=== PATIENT | female | born 1930 | race Caucasian/White ===

== ENCOUNTER 2018-03-19 11:56 | Inpatient (IN) | payer OTHER, MEDICARE ==
[~2018-03-19] VITALS: Ht 152.4 cm; Wt 55.6 kg
[~2018-03-19 11:56] MED LIST: AMOXICILLIN500 M1 PO; ANT12.5 PO; BAY PO; CLARITHROMYCIN500 M1 PO; LAC PO; METP PO; NOR5 PO; PRILOSEC20 MG PO; ZES20 PO
[2018-03-19 12:05] VITALS: Ht 152.4 cm; Wt 55.6 kg
[2018-03-19 12:41] LABS: BASOPHIL % 0.3 % (0-2); PLATELET COUNT 224 x10^3mcL (130-400)
[2018-03-19 12:50] LABS: CALCIUM 8.9 mg/dL (8.5-10.1); CARBON DIOXIDE 25.1 mmol/L (21-32); CHLORIDE SERUM 106 mmol/L (98-107); CREATININE SERUM 1.1 mg/dL (0.6-1.0); GLUCOSE SERUM 146 mg/dL (74-106); POTASSIUM SERUM 3.9 mmol/L (3.5-5.1); SODIUM SERUM 140 mmol/L (136-145)
[2018-03-19 12:54] LABS: ALKALINE PHOSPHATASE 144 U/L (46-116); ALT/SGPT 42 U/L (14-59); AST/SGOT 38 U/L (15-37); BILIRUBIN TOTAL 0.29 mg/dL (0.20-1.00); LIPASE 209 IU/L (73-393); TOTAL PROTEIN, SERUM 7.5 g/dL (6.4-8.2)
[2018-03-19 12:56] LABS: ALBUMIN 3.3 g/dL (3.4-5.0)
[2018-03-19 13:10] LABS: RED CELL DISTRIBUTION WIDTH 14.6 % (11.5-14.5)
[2018-03-19] MEDS ORDERED: LISINOPRIL10 MG PO (16:45)
[2018-03-19] MEDS ORDERED: AMLODIPINE BES2.5 M1 PO (16:46)
[2018-03-19 17:33] LABS: CHOLESTEROL/HDL RATIO 4.9; PHOSPHOROUS 3.2 mg/dL (2.5-4.9)
[2018-03-19 17:41] LABS: FREE T4 1.01 ng/dL (0.76-1.46); FREE THYROXINE INDEX 2.8 ug/dL (1.4-4.5); T4(THYROXINE) 9.2 ug/dL (4.7-13.3)
[2018-03-19 17:43] LABS: T3 TOTAL 0.97 ng/mL
[2018-03-19 17:53] LABS: UA SPECIFIC GRAVITY 1.025 (1.005-1.035); microscopic required? YES; urine erythrocyte NEGATIVE (NEGATIVE)
[2018-03-19 18:03] VITALS: BP 148/65
[2018-03-19 18:45] VITALS: BP 119/54
[2018-03-19 20:53] VITALS: BP 101/64
[2018-03-20 05:59] VITALS: BP 108/45
[2018-03-20 06:32] LABS: BASOPHIL % 0.5 % (0-2); PLATELET COUNT 192 x10^3mcL (130-400)
[2018-03-20 06:39] LABS: CALCIUM 8.7 mg/dL (8.5-10.1); CARBON DIOXIDE 24.6 mmol/L (21-32); CHLORIDE SERUM 107 mmol/L (98-107); CREATININE SERUM 0.8 mg/dL (0.6-1.0); GLUCOSE SERUM 111 mg/dL (74-106); POTASSIUM SERUM 4.2 mmol/L (3.5-5.1); SODIUM SERUM 138 mmol/L (136-145)
[2018-03-20 08:03] VITALS: BP 147/56
[2018-03-20 16:08] VITALS: BP 150/59
[2018-03-20 21:05] VITALS: BP 119/63
[2018-03-21] VITALS (8 sets, daily range): BP systolic 125–158; BP diastolic 45–62
[2018-03-21 06:54] LABS: BASOPHIL % 0.5 % (0-2); PLATELET COUNT 192 x10^3mcL (130-400)
[2018-03-21 07:00] LABS: CALCIUM 9.2 mg/dL (8.5-10.1); CARBON DIOXIDE 24.7 mmol/L (21-32); CHLORIDE SERUM 106 mmol/L (98-107); CREATININE SERUM 0.8 mg/dL (0.6-1.0); GLUCOSE SERUM 97 mg/dL (74-106); POTASSIUM SERUM 3.9 mmol/L (3.5-5.1); SODIUM SERUM 139 mmol/L (136-145)
[2018-03-21 07:09] LABS: RED CELL DISTRIBUTION WIDTH 14.6 % (11.5-14.5)
[2018-03-21 07:33] LABS: ALPHA FETOPROTEIN TUMOR MARKER 234.4 ng/mL (0.0-8.3)
[2018-03-22 05:27] VITALS: BP 133/47
[2018-03-22 06:15] LABS: BASOPHIL % 0.5 % (0-2); PLATELET COUNT 198 x10^3mcL (130-400)
[2018-03-22 06:35] LABS: CALCIUM 9.5 mg/dL (8.5-10.1); CARBON DIOXIDE 25.1 mmol/L (21-32); CHLORIDE SERUM 105 mmol/L (98-107); CREATININE SERUM 0.9 mg/dL (0.6-1.0); GLUCOSE SERUM 103 mg/dL (74-106); POTASSIUM SERUM 4.3 mmol/L (3.5-5.1); SODIUM SERUM 141 mmol/L (136-145)
[2018-03-22 07:07] LABS: RED CELL DISTRIBUTION WIDTH 14.6 % (11.5-14.5)
[2018-03-22 08:27] VITALS: BP 154/58
[2018-03-22 16:56] VITALS: BP 112/48
[2018-03-22 20:45] VITALS: BP 135/53
[2018-03-23 05:27] VITALS: BP 143/60
[2018-03-23 08:10] VITALS: BP 118/72
[2018-03-23 17:32] VITALS: BP 143/63
[2018-03-23 21:06] VITALS: BP 142/53
[2018-03-24 05:01] VITALS: BP 152/53
[2018-03-24 06:54] LABS: BASOPHIL % 0.3 % (0-2); PLATELET COUNT 223 x10^3mcL (130-400); RED CELL DISTRIBUTION WIDTH 14.9 % (11.5-14.5)
[2018-03-24 07:06] LABS: CALCIUM 8.9 mg/dL (8.5-10.1); CARBON DIOXIDE 25.1 mmol/L (21-32); CHLORIDE SERUM 106 mmol/L (98-107); CREATININE SERUM 0.8 mg/dL (0.6-1.0); GLUCOSE SERUM 93 mg/dL (74-106); POTASSIUM SERUM 3.9 mmol/L (3.5-5.1); SODIUM SERUM 139 mmol/L (136-145)
[2018-03-24 08:38] VITALS: BP 126/53
[2018-03-24 17:26] VITALS: BP 128/66
[2018-03-24 20:15] VITALS: BP 131/68
[2018-03-25 05:09] VITALS: BP 114/51
[2018-03-25 08:20] VITALS: BP 106/49
[2018-03-25] MEDS ORDERED: NOR5 PO (16:16)
[2018-03-25] MEDS ORDERED: ZES10 PO (16:17)
[2018-03-25] MEDS ORDERED: ACETAMINOPHEN-H1 TA1 PO (16:18)
[2018-03-25] MEDS ORDERED: LAC PO (16:20)
[2018-03-25] MEDS ORDERED: MEGESTROL AC40 MG/ML PO (16:21)
[2018-03-25] MEDS ORDERED: TRAMADOL HCL50 MG PO (16:22)
[2018-03-25 16:29] VITALS: BP 145/51
[2018-03-26 07:54] LABS: RAPID PLASMA REAGIN Non Reactive (Non Reactive)
== END 2018-03-25 17:48 | disposition home health service (06) | DRG 281 ==
LOC: ED 11:56 → MU 16:06
PROVIDERS: Emergency Medicine; Family Medicine
PROC: 0FB13ZX Excision of Right Lobe Liver, Percutaneous Approach, Diagnostic (ICD-10-PCS; principal; 2018-03-21)
DX: C22.0 Liver cell carcinoma (principal); N17.0 Acute kidney failure with tubular necrosis; K55.1 Chronic vascular disorders of intestine; K86.1 Other chronic pancreatitis; I77.4 Celiac artery compression syndrome; R18.8 Other ascites; E44.1 Mild protein-calorie malnutrition; J84.10 Pulmonary fibrosis, unspecified; I11.9 Hypertensive heart disease without heart failure; N39.0 Urinary tract infection, site not specified; G31.84 Mild cognitive impairment of uncertain or unknown etiology; K57.90 Diverticulosis of intestine, part unspecified, without perforation or abscess without bleeding; R62.7 Adult failure to thrive; R80.9 Proteinuria, unspecified; R73.03 Prediabetes; Z68.23 Body mass index [BMI] 23.0-23.9, adult; Z79.899 Other long term (current) drug therapy; I70.0 Atherosclerosis of aorta; K74.60 Unspecified cirrhosis of liver; M51.36 Other intervertebral disc degeneration, lumbar region
CPT/HCPCS: 83880; 84439; 88344; 97116-GP; 97530-GP; C1894; J0696; J1885; J2001; J2270; J2405; J3490; J7040; J7050; Q0092; Q0162; Q9967

== ENCOUNTER 2018-05-23 08:25 | Inpatient (IN) | payer OTHER, MEDICARE ==
[~2018-05-23] VITALS: Ht 152.4 cm; Wt 52.6 kg
[~2018-05-23 08:25] MED LIST changes: +ACETAMINOPHEN-H1 TA1 PO; +AMLODIPINE BES2.5 M1 PO; +LISINOPRIL10 MG PO; +MEGESTROL AC40 MG/ML PO; +TRAMADOL HCL50 MG PO; +ZES10 PO
[2018-05-23 08:34] VITALS: Ht 152.4 cm; Wt 52.6 kg
[2018-05-23 09:17] LABS: BASOPHIL % 0.7 % (0-2); PLATELET COUNT 290 x10^3mcL (130-400)
[2018-05-23 09:22] LABS: RED CELL DISTRIBUTION WIDTH 14.9 % (11.5-14.5)
[2018-05-23 09:39] LABS: CALCIUM 9.5 mg/dL (8.5-10.1); CARBON DIOXIDE 24.6 mmol/L (21-32); CHLORIDE SERUM 95 mmol/L (98-107); CREATININE SERUM 0.9 mg/dL (0.6-1.0); GLUCOSE SERUM 107 mg/dL (74-106); POTASSIUM SERUM 4.4 mmol/L (3.5-5.1); SODIUM SERUM 129 mmol/L (136-145)
[2018-05-23 09:48] LABS: ALKALINE PHOSPHATASE 160 U/L (46-116); ALT/SGPT 79 U/L (14-59); AMYLASE 42 U/L (25-115); AST/SGOT 114 U/L (15-37); BILIRUBIN TOTAL 0.4 mg/dL (0.20-1.00); CHOLESTEROL 184 mg/dL (<200); LIPASE 125 IU/L (73-393); MAGNESIUM 2.3 mg/dL (1.8-2.4); T4(THYROXINE) 10.7 ug/dL (4.7-13.3); TOTAL PROTEIN, SERUM 7.8 g/dL (6.4-8.2)
[2018-05-23 09:52] LABS: ALBUMIN 2.8 g/dL (3.4-5.0); HDL CHOLESTEROL 33 mg/dL (40-60)
[2018-05-23 10:33] LABS: microscopic required? NO
[2018-05-23 11:17] LABS: UA SPECIFIC GRAVITY <=1.005 (1.005-1.035); urine erythrocyte NEGATIVE (NEGATIVE)
[2018-05-23 11:24] LABS: AMPHETAMINE QUAL UR NONE DETECTED (See below)
[2018-05-23 12:44] VITALS: BP 131/74
[2018-05-23 17:41] VITALS: BP 144/62
[2018-05-23 20:29] VITALS: BP 114/57
[2018-05-23 20:32] VITALS: BP 126/62
[2018-05-24 05:30] VITALS: BP 136/61
[2018-05-24 06:52] LABS: CALCIUM 8.8 mg/dL (8.5-10.1); CARBON DIOXIDE 20.8 mmol/L (21-32); CHLORIDE SERUM 104 mmol/L (98-107); CREATININE SERUM 0.8 mg/dL (0.6-1.0); GLUCOSE SERUM 103 mg/dL (74-106); MAGNESIUM 2.1 mg/dL (1.8-2.4); PHOSPHOROUS 2.5 mg/dL (2.5-4.9); POTASSIUM SERUM 3.9 mmol/L (3.5-5.1); SODIUM SERUM 136 mmol/L (136-145)
[2018-05-24 08:34] LABS: ALPHA FETOPROTEIN TUMOR MARKER 176.5 ng/mL (0.0-8.3)
[2018-05-24 08:55] LABS: BILIRUBIN DIRECT 0.16 mg/dL (0.0-0.2); BILIRUBIN TOTAL 0.44 mg/dL (0.20-1.00); TOTAL PROTEIN, SERUM 7.5 g/dL (6.4-8.2)
[2018-05-24 08:56] LABS: ALBUMIN 2.8 g/dL (3.4-5.0)
[2018-05-24 09:04] VITALS: BP 173/80
[2018-05-24 09:30] LABS: BASOPHIL % 0.3 % (0-2); PLATELET COUNT 283 x10^3mcL (130-400); RED CELL DISTRIBUTION WIDTH 14.4 % (11.5-14.5)
[2018-05-24 12:37] VITALS: BP 128/63
[2018-05-24 15:46] VITALS: BP 151/62
[2018-05-24 20:52] VITALS: BP 101/60
[2018-05-25 04:54] VITALS: BP 142/67
[2018-05-25 07:04] LABS: ALKALINE PHOSPHATASE 142 U/L (46-116); ALT/SGPT 75 U/L (14-59); AST/SGOT 111 U/L (15-37); BILIRUBIN DIRECT 0.19 mg/dL (0.0-0.2); BILIRUBIN TOTAL 0.6 mg/dL (0.20-1.00); CALCIUM 9.2 mg/dL (8.5-10.1); CARBON DIOXIDE 19.6 mmol/L (21-32); CHLORIDE SERUM 99 mmol/L (98-107); CREATININE SERUM 1.3 mg/dL (0.6-1.0); GLUCOSE SERUM 111 mg/dL (74-106); PHOSPHOROUS 3.6 mg/dL (2.5-4.9); POTASSIUM SERUM 3.9 mmol/L (3.5-5.1); SODIUM SERUM 132 mmol/L (136-145); TOTAL PROTEIN, SERUM 7.5 g/dL (6.4-8.2)
[2018-05-25 07:06] LABS: ALBUMIN 2.8 g/dL (3.4-5.0)
[2018-05-25 07:40] LABS: BASOPHIL % 0.2 % (0-2); PLATELET COUNT 274 x10^3mcL (130-400); RED CELL DISTRIBUTION WIDTH 14.1 % (11.5-14.5)
[2018-05-25 09:00] VITALS: BP 108/42
[2018-05-25 11:32] VITALS: BP 130/50
[2018-05-25 16:30] VITALS: BP 136/59
[2018-05-25 21:04] VITALS: BP 114/54
[2018-05-26 05:50] VITALS: BP 139/56
[2018-05-26 07:08] VITALS: BP 140/71
[2018-05-26 07:24] LABS: BASOPHIL % 0.4 % (0-2); PLATELET COUNT 262 x10^3mcL (130-400); RED CELL DISTRIBUTION WIDTH 14.4 % (11.5-14.5)
[2018-05-26 07:43] LABS: CALCIUM 8.8 mg/dL (8.5-10.1); CARBON DIOXIDE 19.6 mmol/L (21-32); CHLORIDE SERUM 104 mmol/L (98-107); GLUCOSE SERUM 94 mg/dL (74-106); POTASSIUM SERUM 3.6 mmol/L (3.5-5.1); SODIUM SERUM 135 mmol/L (136-145)
[2018-05-26 10:55] VITALS: BP 146/50
[2018-05-26 17:02] VITALS: BP 154/62
[2018-05-26 19:35] VITALS: BP 146/62
[2018-05-27] VITALS (7 sets, daily range): BP systolic 115–175; BP diastolic 41–77
[2018-05-27] MEDS ORDERED: ECO81 PO (13:26)
[2018-05-27] MEDS ORDERED: METOPROLOL TART25 M1 PO (13:28)
[2018-05-27] MEDS ORDERED: LIPI10 PO (13:28)
== END 2018-05-27 18:16 | DRG 190 ==
LOC: ED 08:25 → DU 11:10
PROVIDERS: Emergency Medicine; Internal Medicine
DX: I21.4 Non-ST elevation (NSTEMI) myocardial infarction (principal); N17.0 Acute kidney failure with tubular necrosis; C22.0 Liver cell carcinoma; E11.65 Type 2 diabetes mellitus with hyperglycemia; E44.0 Moderate protein-calorie malnutrition; E87.1 Hypo-osmolality and hyponatremia; Z66 Do not resuscitate; I10 Essential (primary) hypertension; E78.5 Hyperlipidemia, unspecified; Z68.22 Body mass index [BMI] 22.0-22.9, adult; Z79.899 Other long term (current) drug therapy; G89.3 Neoplasm related pain (acute) (chronic); R62.7 Adult failure to thrive; I25.10 Atherosclerotic heart disease of native coronary artery without angina pectoris
CPT/HCPCS: 36600; 82962; 97110-GP; 97116-GP; G0480; J1650; J3411; J3475; J3490; J7030; Q0092; Q0163; Q9967

== ENCOUNTER 2018-06-25 06:56 | Emergency (ER) | payer MEDICARE, OTHER ==
[~2018-06-25] VITALS: Ht 152.4 cm; Wt 49.0 kg
[~2018-06-25 06:56] MED LIST changes: +ECO81 PO; +LIPI10 PO; +METOPROLOL TART25 M1 PO
[2018-06-25 07:28] LABS: BASOPHIL % 0.7 % (0-2); PLATELET COUNT 314 x10^3mcL (130-400)
[2018-06-25 07:32] LABS: RED CELL DISTRIBUTION WIDTH 14.8 % (11.5-14.5)
[2018-06-25 07:36] LABS: CALCIUM 9.7 mg/dL (8.5-10.1); CARBON DIOXIDE 21.1 mmol/L (21-32); CHLORIDE SERUM 101 mmol/L (98-107); CREATININE SERUM 1.2 mg/dL (0.6-1.0); GLUCOSE SERUM 147 mg/dL (74-106); POTASSIUM SERUM 4.1 mmol/L (3.5-5.1); SODIUM SERUM 134 mmol/L (136-145)
[2018-06-25 07:40] LABS: ALKALINE PHOSPHATASE 167 U/L (46-116); ALT/SGPT 47 U/L (14-59); AST/SGOT 90 U/L (15-37); BILIRUBIN TOTAL 0.5 mg/dL (0.20-1.00); TOTAL PROTEIN, SERUM 7.7 g/dL (6.4-8.2)
[2018-06-25 07:41] LABS: ALBUMIN 3.1 g/dL (3.4-5.0)
[2018-06-25 09:05] VITALS: BP 125/91
== END 2018-06-25 09:05 | disposition home or self-care (01) ==
LOC: ED 06:56
PROVIDERS: Emergency Medicine
DX: R04.0 Epistaxis (principal); I10 Essential (primary) hypertension
CPT/HCPCS: Q0162

== ENCOUNTER 2018-07-05 14:41 | Inpatient (IN) | payer OTHER, MEDICARE ==
[~2018-07-05] VITALS: Ht 152.4 cm; Wt 48.8 kg
--- NOTE | 2018-07-05 16:22 | NUR ---
TO ROOM 11 FOR EVAL.
--- NOTE | 2018-07-05 16:35 | NUR ---
PT BIB FAMILY C/C COUGH STS CP FROM COUGH X [address] PATSY WEAVER
--- NOTE | 2018-07-05 16:51 | NUR ---
PLEASE ENTER FULL NAMES OF TALENT DIRECTOR/RN Patient data collected by (TALENT DIRECTOR):[email or web address] Assessment reviewed and completed by (RN): Biran AGUSTIN
--- NOTE | 2018-07-05 17:22 | NUR ---
DR JACINTO AT BEDSIDE TO TO EVAL
--- NOTE | 2018-07-05 17:32 | NUR ---
XRAY AT BEDSIDE
[2018-07-05 18:07] LABS: BASOPHIL % 0.6 % (0-2); PLATELET COUNT 237 x10^3mcL (130-400)
[2018-07-05 18:22] LABS: RED CELL DISTRIBUTION WIDTH 15.5 % (11.5-14.5)
[2018-07-05 18:26] LABS: CARBON DIOXIDE 19.9 mmol/L (21-32); CHLORIDE SERUM 99 mmol/L (98-107); CREATININE SERUM 0.9 mg/dL (0.6-1.0); GLUCOSE SERUM 101 mg/dL (74-106); POTASSIUM SERUM 3.9 mmol/L (3.5-5.1); SODIUM SERUM 131 mmol/L (136-145)
[2018-07-05 18:39] LABS: ALKALINE PHOSPHATASE 160 U/L (46-116); ALT/SGPT 78 U/L (14-59); AST/SGOT 190 U/L (15-37); BILIRUBIN TOTAL 0.3 mg/dL (0.20-1.00); FREE T4 1.03 ng/dL (0.76-1.46); TOTAL PROTEIN, SERUM 7.5 g/dL (6.4-8.2)
[2018-07-05 18:40] LABS: ALBUMIN 2.9 g/dL (3.4-5.0)
--- NOTE | 2018-07-05 18:52 | NUR ---
BACK FROM BATHROOM MEDICATED ORDERED
--- NOTE | 2018-07-05 19:09 | NUR ---
RECEIVED PT REPORT FROM IWONA COMER TO RESUME PRIMARY CARE
--- NOTE | 2018-07-05 19:31 | NUR ---
PT LAYING IN ED GURNEY IN POSITION OF COMFORT. PT HAS DAUGHTER AT BEDSIDE. PT HAS COMFORT MEASURES IN PLACE. PT IS A/O X3. PT IS ABLE TO FOLLOW COMMANDS APPROPRIATELY. PT RESPS ARE E/U. PT DENIES ANY PAIN. PTS SKIN IS WARM AND DRY TO TOUCH. NO DISTRESS NOTED
--- NOTE | 2018-07-05 19:44 | NUR ---
DR JACINTO AT BEDSIDE DISCUSSING PLAN OF CARE WITH PT AND FAMILY
[2018-07-05 20:33] LABS: PHOSPHOROUS 3.3 mg/dL (2.5-4.9)
--- NOTE | 2018-07-05 20:38 | NUR ---
GAVE PT REPORT TO GIGI WEATHERS FOR PT TO BE ADMITTED TO TELE FLOOR.
--- NOTE | 2018-07-05 20:42 | NUR ---
PT WHEELED OUT OF ED VIA ED GURNEY. PT ADMITTED TO TELE FLOOR. NO INCIDENCE NOTED
[2018-07-05 20:43] LABS: CHOLESTEROL/HDL RATIO 5.8
--- NOTE | 2018-07-05 20:45 | NUR ---
RECEIVED PT FROM ED [facility]IA [facility], CAME IN DUE TO SOB AND CHEST PAIN WHEN COUGHING. AAOX1, ABLE TO FOLLOW SIMPLE COMMANDS. NO SOB NOTED, O2 SAT=97%, ON RA. LUNG SOUNDS CTA. PER PT'S DAUGHTER, PT HAS PRODUDCTIVE COUGH, ABLE TO EXPECTORATE GREEN PHLEGM. DENIES CHEST PAIN/PRESSURE, SR ON THE MONITOR. DENIES ABDOMINAL PAIN/NAUSEA/VOMITING. PER PT'S DAUGHTER, PT HAS DIARRHEAL EPISODES X2 DAYS, HAD 1 EPISODE TODAY. VOIDS. SKIN IS INTACT. SIDE RAILS UPX2. CALL LIGHT ON REACH. BED ALARM ON. HOB ELEVATED AT 30 DEG. DAUGHTER AT BEDSIDE. ENDORSED TO PRIMARY NURSE WILFRID FOR CONTINUITY OF CARE
[2018-07-05 21:17] VITALS: BP 144/66
[2018-07-05 21:21] VITALS: Ht 152.4 cm; Wt 48.8 kg
[2018-07-05 23:36] VITALS: BP 144/66
--- NOTE | 2018-07-06 04:54 | NUR ---
PT SLEPT WELL WITH DAUGHTER AT BEDSIDE.OCCASSIONAL COUGHING AND COUGHS OUT GREENISH PHLEGM.ASSISTED TO BR BY DAUGHTER AND WELL TOLERATED.DENIES CHESTPAIN AT THIS TIME.ALL NEEDS MET.WILL CONTINUE TO MONITOR.
[2018-07-06 06:01] LABS: UA SPECIFIC GRAVITY 1.025 (1.005-1.035); microscopic required? YES; urine erythrocyte NEGATIVE (NEGATIVE)
[2018-07-06 06:12] VITALS: BP 135/60
[2018-07-06 06:19] LABS: CALCIUM 8.7 mg/dL (8.5-10.1); CARBON DIOXIDE 21.3 mmol/L (21-32); CHLORIDE SERUM 93 mmol/L (98-107); CREATININE SERUM 0.8 mg/dL (0.6-1.0); GLUCOSE SERUM 105 mg/dL (74-106); MAGNESIUM 1.8 mg/dL (1.8-2.4); POTASSIUM SERUM 3.8 mmol/L (3.5-5.1); SODIUM SERUM 125 mmol/L (136-145)
[2018-07-06 06:40] LABS: BASOPHIL % 0.4 % (0-2); PLATELET COUNT 206 x10^3mcL (130-400)
[2018-07-06 07:05] LABS: RED CELL DISTRIBUTION WIDTH 15.3 % (11.5-14.5)
--- NOTE | 2018-07-06 07:15 | NUR ---
RECEIVED PATIENT FROM SOCIAL MEDIA ASSISTANT NURSE. PATIENT IS AWAKE ALERT AND CONFUSED. TELE#9, SB, HR 59, DENIES FEELINGS OF DIZZINESS AND LIGHTHEADEDNESS. PATIENT IS ON ROOM AIR, REATHING EVEN AND UNLABORED. PRODUCTIVE COUGH NOTED WITH GREEN SPUTUM PER SOCIAL MEDIA ASSISTANT NURSE. IV NOTED TO LFA, IVF INFUSING WELL ORDERED, NO S/S REDNESS OR EDEMA AT SITE. CALL LIGHT WITHIN EASY REACH. FALL AND SAFETY PRECAUTIONS IN PLACE. WILL CONTINUE PLAN OF CARE.
[2018-07-06 08:03] VITALS: BP 143/60
--- NOTE | 2018-07-06 12:12 | NUR ---
PATIENT A1C 6.3. DR VASQUES NOTIFIED.
[2018-07-06 13:00] VITALS: BP 149/70
--- NOTE | 2018-07-06 14:04 | NUR ---
PATIENT RESTING PEACEFULLY WITH BOTH EYES CLOSED. BREATHING EVEN AND UNLABORED ON ROOM AIR. IVF INFUSING WELL TO RIGHT WRIST, NO S/S REDNESS OR EDEMA AT SITE. CALL LIGHT WITHIN EASY REACH. FALL ANS SAFETY PRECAUTIONS IN PLACE. WILL CONTINUE TO MONITOR.
[2018-07-06 17:24] VITALS: BP 100/56
--- NOTE | 2018-07-06 18:53 | NUR ---
PATIENT RESTING IN BED PEACEFULLY WITH FAMILY AT THE BEDSIDE. DENIES PAIN AND DISCOMOFRT AT THIS TIME. VS STABLE. PATIENT CARE ENDORSED TO MEDICAID ELIGIBILITY SPECIALIST NURSE.
[2018-07-06 19:05] VITALS: BP 116/63
--- NOTE | 2018-07-06 19:05 | NUR ---
RECIEVED PT SITTING ON A CHAIR AT THIS TIME.BREATHING EASY AND NON-LABORED WITH OCCASSIONAL COUGHING.DAUGHTER AT BEDSIDE REPORTS OF WHITISH PHLEGM.DENIES CHESTPAIN.BP 116/63 MMHG,HR 74.WILL CONTINUE TO MONITOR.
--- NOTE | 2018-07-06 19:30 | NUR ---
CHECKED ON PT AFTER DAUGHTER LEFT AND ATTEMPTED TO WALK TOWARDS THE BR.APPEARS VERY CONFUSED AND DISORIENTED,HAVE FRENCH SPEAKING NURSE TALKED TO PT BUT UNABLE TO REDURECT BEHAVIOR.WANTS US TO LEAVE THE ROOM AND ATTEMPTING TO CLOSE THE DOOR.CALLED ON THE PHONE AND INFORMED OF THE SITUATION.WILL COME BACK FOR THE PT.WILL ALLOW PT TO CALM DOWN.SIITING AT THE CHAIR AT THIS TIME.WILL STAY WITH PT UNTIL DAUGHTER COMES BACK
--- NOTE | 2018-07-07 04:34 | NUR ---
PT SLEPT WELL WITH DAUGHTER AT BEDSIDE.NOTED WITH ON AND OFF COUGHING AND ABLE TO EXPECTORATE WHITISH THICK COLORED PHLEGM.NO CONGESTION NOTED.ON RT PROTOCOL.DENIES CHESTPAIN ALL NIGHT.ALL NEEDS MET.WILL CONTINUE TO MONITOR.
[2018-07-07 06:28] VITALS: BP 141/64
[2018-07-07 06:30] LABS: BASOPHIL % 0.5 % (0-2); PLATELET COUNT 233 x10^3mcL (130-400)
[2018-07-07 07:07] LABS: RED CELL DISTRIBUTION WIDTH 14.8 % (11.5-14.5)
[2018-07-07 07:29] LABS: CALCIUM 8.8 mg/dL (8.5-10.1); CARBON DIOXIDE 20.8 mmol/L (21-32); CHLORIDE SERUM 98 mmol/L (98-107); CREATININE SERUM 0.7 mg/dL (0.6-1.0); GLUCOSE SERUM 106 mg/dL (74-106); MAGNESIUM 1.9 mg/dL (1.8-2.4); PHOSPHOROUS 2.7 mg/dL (2.5-4.9); POTASSIUM SERUM 3.9 mmol/L (3.5-5.1); SODIUM SERUM 131 mmol/L (136-145)
--- NOTE | 2018-07-07 07:40 | NUR ---
RECIEVED PT. RESTLESS AND AGITATED,AFTER HER DAUGHTER WENT HOME,PT. UNCOOPERATIVE,PULLING HER IV ACCESS,CAN NOT KEEP TO SIT DOWN IN CHAIR AT BEDSIDE FOR BREAKFAST NOTED PT. HAS FEAR,ANXIETY W/ OUT HER DAUGHTER PRESENCE AT BEDSIDE.APPEARS CONFUSED ,UNABLE TO SAY HER NAME.MAKE PT. RELAX AND TO CALM HER DOWN BUT STILL RESTLESS. CALLED HER DAUGHTER AT HOME AND NOTIFIED REGARDING HER MOTHER CONDITION.AND NOTIFIED TO CHARGE NURSE NELLY AND MD NOTIFIED THEY ARE MADE AWARE.PUT PT. IN CHAIR AND CONT. TO MONITOR .
--- NOTE | 2018-07-07 08:30 | NUR ---
PT. DAUGHTER AND HER SON ARRIVED AND PT. FOLLOWED INSTRUCTIONS TO GO BACK IN HER BED.AND HER DAUGHTER TALKING TO PT. PT. RESTING IN BED AT THIS TIME.
--- NOTE | 2018-07-07 10:00 | NUR ---
PT. ASSISTED TO AMBULATE IN THE BATHROOM AND VOIDING. PUT IN CHAIR AT BEDSIDE WITH HER SON AT BEDSIDE TOO AND MORE COOPERATIVE AT THIS TIME.CALL LIGHT W/ IN REACH. CONT IV ANTIBIOTIC ORDERED.DENIES ANY PAIN.
[2018-07-07 10:12] VITALS: BP 107/52
[2018-07-07 11:19] VITALS: BP 107/52
[2018-07-07] MEDS ORDERED: ZITHROMAX500 MG PO (11:19)
--- NOTE | 2018-07-07 15:17 | NUR ---
PT. WENT HOME W/ STABLE CONDTION PER W/C ACC. W/ HER DAUGHTER,DISCHARGED INSTRUCTIONS AND PRESCRIPTION GIVEN AND DISCUSSED TO PT/DAUGHTER AND VERBALIZED UNDERSTANDING OF INSTRUCTIONS GIVEN NO ACUTE DISTRESS NOTED ESCORTED BY SCHOOL BUS INSPECTOR IN THE LOBBY.
== END 2018-07-07 14:56 | disposition home or self-care (01) | DRG 137 ==
LOC: ED 14:41 → DU 19:48
PROVIDERS: Emergency Medicine; ADMIT Internal Medicine
DX: J69.0 Pneumonitis due to inhalation of food and vomit (principal); J96.00 Acute respiratory failure, unspecified whether with hypoxia or hypercapnia; E43 Unspecified severe protein-calorie malnutrition; D89.9 Disorder involving the immune mechanism, unspecified; E11.65 Type 2 diabetes mellitus with hyperglycemia; Z99.81 Dependence on supplemental oxygen; C22.0 Liver cell carcinoma; E87.1 Hypo-osmolality and hyponatremia; I10 Essential (primary) hypertension; I25.2 Old myocardial infarction; Z66 Do not resuscitate; R74.0 Nonspecific elevation of levels of transaminase and lactic acid dehydrogenase [LDH]; J20.9 Acute bronchitis, unspecified; Z79.82 Long term (current) use of aspirin; Z79.899 Other long term (current) drug therapy; Z68.21 Body mass index [BMI] 21.0-21.9, adult
CPT/HCPCS: 82962; 83880; 84439; 87804; J0456; J0696; J7030; Q0092

== ENCOUNTER 2018-07-15 11:11 | Inpatient (IN) | payer OTHER, MEDICARE ==
[~2018-07-15] VITALS: Ht 152.4 cm; Wt 47.8 kg
[2018-07-15 11:50] LABS: BASOPHIL % 0.5 % (0-2); PLATELET COUNT 284 x10^3mcL (130-400)
[2018-07-15 11:53] LABS: RED CELL DISTRIBUTION WIDTH 15.8 % (11.5-14.5)
[2018-07-15 11:59] LABS: CALCIUM 9.1 mg/dL (8.5-10.1); CHLORIDE SERUM 100 mmol/L (98-107); CREATININE SERUM 0.8 mg/dL (0.6-1.0); GLUCOSE SERUM 99 mg/dL (74-106); POTASSIUM SERUM 4.2 mmol/L (3.5-5.1); SODIUM SERUM 133 mmol/L (136-145)
[2018-07-15 12:03] LABS: ALKALINE PHOSPHATASE 163 U/L (46-116); ALT/SGPT 59 U/L (14-59); AST/SGOT 124 U/L (15-37); BILIRUBIN TOTAL 0.62 mg/dL (0.20-1.00); TOTAL PROTEIN, SERUM 7.3 g/dL (6.4-8.2)
[2018-07-15 12:26] LABS: ALBUMIN 2.9 g/dL (3.4-5.0)
[2018-07-15 14:30] VITALS: BP 149/74
[2018-07-15 14:34] LABS: MAGNESIUM 2.2 mg/dL (1.8-2.4); PHOSPHOROUS 3.2 mg/dL (2.5-4.9)
[2018-07-15 14:43] LABS: T3 TOTAL 1.07 ng/mL
[2018-07-15 14:49] LABS: FREE T4 1.37 ng/dL (0.76-1.46); FREE THYROXINE INDEX 3.8 ug/dL (1.4-4.5)
[2018-07-15 14:54] VITALS: Ht 152.4 cm; Wt 47.8 kg
[2018-07-15 17:09] VITALS: BP 145/70
[2018-07-15 20:36] VITALS: BP 145/70
[2018-07-15 21:27] VITALS: BP 119/48
[2018-07-16 04:49] VITALS: BP 126/59
[2018-07-16 08:14] LABS: CHLORIDE SERUM 104 mmol/L (98-107); CREATININE SERUM 0.8 mg/dL (0.6-1.0); GLUCOSE SERUM 116 mg/dL (74-106); POTASSIUM SERUM 3.6 mmol/L (3.5-5.1); SODIUM SERUM 134 mmol/L (136-145)
[2018-07-16 08:26] LABS: BASOPHIL % 0.7 % (0-2); PLATELET COUNT 249 x10^3mcL (130-400)
[2018-07-16 08:29] LABS: RED CELL DISTRIBUTION WIDTH 15.4 % (11.5-14.5)
[2018-07-16 10:10] VITALS: BP 118/54
[2018-07-16 13:14] VITALS: BP 139/62
[2018-07-16 18:52] VITALS: BP 140/66
[2018-07-16 21:21] VITALS: BP 126/55
[2018-07-17 04:27] LABS: CALCIUM 8.4 mg/dL (8.5-10.1); CARBON DIOXIDE 21.8 mmol/L (21-32); CHLORIDE SERUM 104 mmol/L (98-107); CREATININE SERUM 0.7 mg/dL (0.6-1.0); GLUCOSE SERUM 91 mg/dL (74-106); PHOSPHOROUS 2.5 mg/dL (2.5-4.9); POTASSIUM SERUM 3.5 mmol/L (3.5-5.1); SODIUM SERUM 135 mmol/L (136-145)
[2018-07-17 04:32] LABS: BASOPHIL % 0.6 % (0-2); PLATELET COUNT 267 x10^3mcL (130-400); RED CELL DISTRIBUTION WIDTH 15.9 % (11.5-14.5)
[2018-07-17 05:46] VITALS: BP 146/61
[2018-07-17 09:50] VITALS: BP 124/55
[2018-07-17 14:15] VITALS: BP 107/50
[2018-07-17] MEDS ORDERED: ELIQUIS2.5 MG PO (16:39)
[2018-07-17 17:22] VITALS: BP 107/50
[2018-07-17 17:29] VITALS: BP 136/61
== END 2018-07-17 19:56 | disposition home or self-care (01) | DRG 134 ==
LOC: ED 11:11 → DU 12:58
PROVIDERS: Emergency Medicine; Internal Medicine; ADMIT Family Medicine
DX: I26.99 Other pulmonary embolism without acute cor pulmonale (principal); E44.0 Moderate protein-calorie malnutrition; D68.59 Other primary thrombophilia; C22.0 Liver cell carcinoma; E87.1 Hypo-osmolality and hyponatremia; J44.9 Chronic obstructive pulmonary disease, unspecified; E11.9 Type 2 diabetes mellitus without complications; E78.5 Hyperlipidemia, unspecified; K57.30 Diverticulosis of large intestine without perforation or abscess without bleeding; I10 Essential (primary) hypertension; I25.2 Old myocardial infarction; D63.8 Anemia in other chronic diseases classified elsewhere; Z68.21 Body mass index [BMI] 21.0-21.9, adult
CPT/HCPCS: 36600; 84439; 94150; J1644; J7030; Q0092

== ENCOUNTER → 2018-07-15 | Outpatient (CLI) | payer MEDICARE, OTHER ==
[~2018-07-15] MED LIST changes: +ZITHROMAX500 MG PO
== END | disposition home or self-care (01) ==
LOC: CT 08:42
PROC: BW251ZZ Computerized Tomography (CT Scan) of Chest, Abdomen and Pelvis using Low Osmolar Contrast (ICD-10-PCS; principal; 2018-07-15)
DX: C22.0 Liver cell carcinoma (principal)
CPT/HCPCS: Q9967

== ENCOUNTER → 2018-08-28 | Outpatient (CLI) | payer MEDICARE, OTHER ==
[~2018-08-28] MED LIST changes: +ELIQUIS2.5 MG PO
== END | disposition home or self-care (01) ==
LOC: CT 09:00
PROC: BW251ZZ Computerized Tomography (CT Scan) of Chest, Abdomen and Pelvis using Low Osmolar Contrast (ICD-10-PCS; principal; 2018-08-28)
DX: C22.0 Liver cell carcinoma (principal)

== ENCOUNTER → 2018-10-09 | Outpatient (CLI) | payer MEDICARE, OTHER | END | disposition home or self-care (01) | LOC: CT 08:50 | PROC: BW251ZZ Computerized Tomography (CT Scan) of Chest, Abdomen and Pelvis using Low Osmolar Contrast (ICD-10-PCS; principal; 2018-10-09) | DX: C22.0 Liver cell carcinoma (principal) | CPT/HCPCS: Q9967 ==

== ENCOUNTER → 2018-11-20 | Outpatient (CLI) | payer MEDICARE, OTHER | END | disposition home or self-care (01) | LOC: CT 08:21 | PROC: BW251ZZ Computerized Tomography (CT Scan) of Chest, Abdomen and Pelvis using Low Osmolar Contrast (ICD-10-PCS; principal; 2018-11-20) | DX: C22.0 Liver cell carcinoma (principal) | CPT/HCPCS: Q9967 ==